=== PATIENT | male | born 1935 | race Caucasian/White ===

== ENCOUNTER → 2020-09-30 | Outpatient (CLI) | payer OTHER ==
--- NOTE | 2020-09-30 21:20 | REP ---
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 COMPARISON: Outside chest CT from [facility] dated 08/29/2020. TECHNIQUE: The study is performed with 9.05 mCi of F 18 FDG. FINDINGS: Neck and supraclavicular areas: There are no hypermetabolic foci. Chest: There is a hypermetabolic 5.0 cm mass in the posterior segment of the right upper lobe in the right apex with a maximal standard uptake value of 11.5. Inferomedial to this there is a suprahilar right lung nodule measuring 1.6 cm with a maximal standard uptake value of 6.04. There is a large right paratracheal mediastinal mass extending into the precarinal zone and into the base of the right hilus with a maximal standard uptake value of 6.23, compatible with confluent adenopathy. There is a multiloculated right pleural effusion. One of the loculations extends into the minor fissure. There is a right thoracotomy tube. There is a large left pleural effusion. No left thoracotomy tube is identified. There is no hypermetabolic uptake in the right or the left pleural effusions. No other lung nodules or masses are identified. There is a pericardial effusion predominantly on the right measuring up to 17 mm in depth along the right cardiac margin. There is no hypermetabolic uptake within the pericardial effusion. Abdomen, pelvis and upper thighs: No hepatic or adrenal foci are identified. No periaortic, iliac femoral foci are identified. There is nonspecific bowel labeling. There are numerous sigmoid colon diverticula E without evidence of pericolonic inflammation, fluid or abscess. There are no skeletal foci. IMPRESSION: There is a hypermetabolic 5.0 cm mass in the posterior segment of the right upper lobe in the right apex demonstrating hypermetabolic uptake. There is a smaller mass in the right suprahilar area also demonstrating hypermetabolic uptake. There is a large hypermetabolic mediastinal mass as described extending into the precarinal area and into the base of the right hilus, likely confluent adenopathy. There is a large multiloculated right pleural effusion with 1 loculation extending into the minor fissure. There is a right thoracotomy tube. There is a large left pleural effusion. There is no left thoracotomy tube. <Electronically signed by Sean Albarado > 09/30/20 [id number]
== END ==
LOC: M PLARAD 14:55
PROVIDERS: ATTEND Internal Medicine
DX: C34.11 Malignant neoplasm of upper lobe, right bronchus or lung (principal)
CPT/HCPCS: 78815; A9552